=== PATIENT | female | born 2005 | race Caucasian/White ===

== ENCOUNTER 2024-06-24 13:18 | Emergency (ER) | payer MEDICAID ==
[~2024-06-24] VITALS: Ht 157.5 cm; Wt 41.2 kg
[2024-06-24 13:48] VITALS: TEMP 98.5
[2024-06-24 13:56] VITALS: BP 104/77; PULSE 107; RESP 16; O2SAT 98
--- NOTE | 2024-06-24 14:23 | DVH ---
CLINICAL INDICATION: Pain TECHNIQUE: 3 radiographic views of the right shoulder were obtained. Comparison: None FINDINGS/IMPRESSION: There is no evidence of acute fracture or dislocation. The visualized joint space is well maintained. The alignment is anatomical. There is no radiopaque foreign body.
--- NOTE | 2024-06-24 14:27 | DVH ---
EXAM: XY R ELBOW 3 VIEW XRAY HISTORY: possible fracture/dislocation COMPARISON: None TECHNIQUE: Three views of the right elbow were performed. FINDINGS: No acute fracture or effusion are identified about the right elbow. No significant degenerative ponce ges. IMPRESSION: No acute fracture of the right elbow.
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
== END 2024-06-24 14:47 | disposition home or self-care (01) ==
LOC: ER 13:18
DX: M25.511 Pain in right shoulder (principal); M25.521 Pain in right elbow
CPT/HCPCS: 73030; 73080

== ENCOUNTER 2024-09-04 12:53 | Emergency (ER) | payer MEDICAID ==
[~2024-09-04] VITALS: Ht 160 cm; Wt 46.0 kg
[2024-09-04] MEDS: cefTRIAXone SOD 1,000 MG VL IM ONE (13:43)
[2024-09-04] MEDS: ACETAMINOPHEN 325 MG TAB PO ONE (13:43)
--- NOTE | 2024-09-04 13:49 | ED.PDOC ---
Eye-HPI HPI Comments A 19 YEAR OLD FEMALE PRESENTS TO THE ED WITH COMPLAINT OF SORE THROAT. PATIENT STATES SHE HAS BEEN EXPERIENCING A SORE THROAT, BODY ACHES, AND AN OCCASIONAL FEVER THAT STARTED YESTERDAY. PATIENT DENIES FEVER, CHILLS, SHORTNESS OF BREATH, CHEST PAIN, ABDOMINAL PAIN, NAUSEA, VOMITING, HEADACHE, OR OTHER COMPLAINTS. NO OTHER SYMPTOMS OR MODIFYING FACTORS AT THIS TIME. PATIENT IS ALERT, ORIENTED X 4, AND HAS STEADY GAIT. Chief Complaint: Flu like Time Seen by MD: 13:14 Primary Care Provider: NONE Reviewed Notes: Nurses Notes, Medications, Allergies Allergies: Coded Allergies: NO KNOWN ALLERGIES (Unverified , 01/17/16) Home Meds Active Scripts Ibuprofen (Ibuprofen) 600 Mg Tab, 1 TAB PO TID, #30 TAB Prov:RASHAWN CONCEPCION 09/04/24 Azithromycin (ZITHROMAX TABLET) 250 Mg Tb, 250 MG PO DAILY, #6 TAB Prov:RASHAWN CONCEPCION 09/04/24 Information Source: Patient Mode of Arrival: Ambulatory Timing: Days Duration: Since onset, Days Prehospital treatment: None Quality: Pain, Red Lids: Normal Conjunctiva: Normal Cornea: Normal Pupils: Normal EOM: Normal Fundus: Normal Slit lamp exam: Normal Anterior chamber: Normal Mouth Location: Pharynx Mouth: Normal ENT Ear Exam: Normal, Normal, Normal Nose: Normal Sinuses: Normal Oropharynx: Tonsillar hypertrophy, Red Onset: Spontaneous Throat Exposed to: None History of: None Last Tetanus: UTD Modifying factors: Nothing Associated signs and symptoms: Sore Throat Past Medical History PAST MEDICAL HISTORY: Denies Surgical History: Denies all surgeries NETWORK TECHNICIAN History: No Pertinent NETWORK TECHNICIAN History Family History Family History: Reviewed,noncontributory to illness Social History Smoker: Non-Smoker Alcohol: Denies ETOH Use Drugs: Denies Drug Use Lives In: Home Constitutional: reports: fever; denies: chills, diaphoresis, fatigue, malaise, sweats, weakness, others EENTM: reports: throat pain, throat swelling; denies: blurred vision, double vision, ear bleeding, ear discharge, ear drainage, ear pain, ear ringing, eye pain, eye redness, hearing loss, mouth pain, mouth swelling, nasal discharge, nose bleeding, nose congestion, nose pain, photophobia, tearing, voice changes, others Respiratory: denies: cough, hemoptysis, orthopnea, SOB at rest, shortness of breath, SOB with excertion, stridor, wheezing, others Cardiovascular: denies: chest pain, dizzy spells, diaphoresis, Dyspnea on e xertion, edema, irregular heart beat, left arm pain, lightheadedness, palpitations, PND, syncope, others Gastrointestinal: denies: abdomen distended, abdominal pain, blood streaked bowels, constipated, diarrhea, dysphagia, difficulty swallowing, hematemesis, melena, nausea, poor appetite, poor fluid intake, rectal bleeding, rectal pain, vomiting, others Genitourinary: denies: abnormal vagina bleeding, burning, dyspareunia, dysuria, flank pain, frequency, hematuria, incontinence, pain, , vagina discharge, urgency, others Neurological: denies: dizziness, fainting, headache, left sided numbness, left sided weakness, numbness, paresthesia, pre-existing deficit, right sided numbness, right sided weakness, seizure, speech problems, tingling, tremors, weakness, others Musculoskeletal: reports: muscle pain; denies: back pain, gout, joint pain, joint swelling, muscle stiffness, neck pain, others Integumetry: denies: bruises, change in color, change in hair/nails, dryness, laceration, lesions, lumps, rash, wounds, others Allergic/Immunocompromised: denies: Difficulty Healing, Frequent Infections, Hives, Itching, others Hematologic/Lymphatic: denies: anemia, blood clots, easy bleeding, easy bruising, swollen glands, others Endocrine: denies: excessive hunger, excessive sweating, excessive thirst, excessive urination, flushing, intolerance to cold, intolerance to heat, unexplained weight gain, unexplained weight loss, others Psychiatric: denies: anxiety, bipolar disorder, depression, hopeless, panic disorder, schizophrenia, sleepless, suicidal, others All Other Systems: Reviewed and Negative Physical Exam General Appearance: No Apparent Distress, Normal HEENT: PERRL/EOMI, Pharyngeal Erythema (TONSILLAR SWELLING, NO EXUDATES), TMs Normal Neck: Full Range of Motion, Non-Tender, Normal, Normal Inspection Respiratory: Chest Non-Tender, Lungs Clear, No Accessory Muscle Use, No Respiratory Distress, Normal Breath Sounds Cardiovascular: No Edema, No JVD, No Murmur, No Gallop, Normal Peripheral Pulses, Regular Rate/Rhythm Breast Exam: Deferred Gastrointestinal: No Organomegaly, Non Tender, No Pulsatile Mass, Normal Bowel Sounds, Soft Genitalia: Deferred Pelvic: Deferred Rectal: Deferred Extremities: No calf tenderness, Normal capillary refill, Normal inspection, Normal range of motion, Non-tender, No pedal edema Musculoskeletal : Apperance: Normal Neurologic: Alert, sas bi developer II-XII nml as Tested, No Motor Deficits, Normal Affect, Normal Mood, No Sensory Deficits Cerebellar Function: Normal Reflexes: Normal Skin: Dry, Normal Color, Warm Peripheral Pulses: 2+ carotid (R), 2+ carotid (L) Lymphatic: No Adenopathy Was a procedure done? Was a procedure done?: No EENT DIFF Eye: N/A Ear: Otitis Media, Pharyngitis, Sinusitis Nose: N/A Mouth: N/A Sore Throat: Pharyngitis, Streptococcal, Viral Pharyngitis, URI X-Ray, Labs, Meds, VS Vital Signs Date Time Temp Pulse Resp B/P (MAP) Pulse Ox O2 Delivery O2 Flow Rate FiO2 09/04/24 13:23 98.5 97 16 115/79 (91) 98 98.5 09/04/24 13:23 97 16 98 Room Air 09/04/24 13:03 98.5 97 16 115/79 (91) 98 98.5 Current Medications Medications (Trade) Dose Ordered Sig/Collette Route Start Time Stop Time Status Last Admin Ceftriaxone Sodium (Rocephin) 1,000 mg ONCE ONCE IM 09/04/24 13:45 09/04/24 13:46 DC 09/04/24 13:43 Acetaminophen (Tylenol Tablet) 650 mg ONCE ONCE PO 09/04/24 13:45 09/04/24 13:46 DC 09/04/24 13:43 X-Ray, Labs, Meds, VS Comment EXTERNAL MEDICAL RECORDS REVIEWED: [NONE] INDEPENDENT HISTORIANS: [NONE] SOCIAL DETERMINANTS OF HEALTH: [NONE] LABS ORDERED: NONE REVIEWED AND INTERPRETED RESULTS: NONE IMAGING ORDERED: NONE TREATMENTS ORDERED: ROCEPHIN 1 G IM PROCEDURES PERFORMED: NONE CRITICAL CARE TIME: NONE I HAVE DISCUSSED THE PATIENT WITH THE ATTENDING PHYSICIAN DR. DILLARD AND HE AG GERMÁN WITH THE PATIENT'S PLAN OF CARE AND DISPOSITION. BASED ON HISTORY OF PRESENT ILLNESS, AND PHYSICAL EXAM, PATIENT WILL BE D ISCHARGED HOME. DISCUSSED PLAN FOR DISCHARGE HOME WITH RX [AZITHROMYCIN AND IBUPROFEN 600 MG]. MEDICATION WARNINGS GIVEN. SHARED DECISION MAKING: PATIENT INSTRUCTED TO FOLLOW UP WITH PRIMARY CARE PROVIDER IN 1-2 DAYS FOR RE-EVALUATION OF SYMPTOMS. PATIENT VERBALIZES UNDERSTANDING TO RETURN TO ED FOR NEW OR WORSENING SYMPTOMS OR IF FOLLOW UP WITH PCP CANNOT BE OBTAINED. PATIENT FEELS COMFORTABLE GOING HOME AT THIS TIME. ALL QUESTIONS ADDRESSED AT TIME OF DISCHARGE. Time of 1ST Reevaluation: 14:06 Reevaluation 1ST: Improved Patient Education/Counseling: Diagnosis, Treatment, Need For Follow Up Family Education/Counseling: Diagnosis, Treatment, Need For Follow Up Medical Screening: No EMC Exist At This Time Departure 1 Departure Time of Disposition: 14:06 Impression: Primary Impression: Acute tonsillitis Qualified Codes: J03.90 - Acute tonsillitis, unspecified Disposition: 01 HOME / SELF CARE / HOMELESS Condition: Stable Additional Instructions: FOLLOW-UP WITH PCP IN 1 TO 2 DAYS. TAKE MEDICATIONS PRESCRIBED. RETURN TO ED FOR ANY NEW OR WORSENING SYMPTOMS. e-Prescriptions Ibuprofen (Ibuprofen) 600 Mg Tab 1 TAB PO TID, #30 TAB Prov: RASHAWN CONCEPCION 09/04/24 Azithromycin (ZITHROMAX TABLET) 250 Mg Tb 250 MG PO DAILY, #6 TAB Prov: RASHAWN CONCEPCION 09/04/24 Discharged With: Self Critical Care Note Critical Care Time?: No Stability Stability form required: No I personally scribed for RASHAWN CONCEPCION ([email or web address]) on 09/04/24 at 13:49. Electronically submitted by Nick Skelton ([email or web address]). RASHAWN CONCEPCION September 04, 2024 13:49
[2024-09-04] MEDS ORDERED: AZIT-185 PO (14:02)
[2024-09-04] MEDS ORDERED: IBUP-1454 PO (14:02)
[2024-09-04 14:05] VITALS: BP 105/71; PULSE 97; RESP 18; O2SAT 97
[2024-09-04 14:06] VITALS: TEMP 98.3
== END 2024-09-04 14:08 | disposition home or self-care (01) ==
LOC: ER 12:59
DX: J03.90 Acute tonsillitis, unspecified (principal); M79.18 Myalgia, other site
CPT/HCPCS: 96372; 99283; J0696

== ENCOUNTER 2024-12-15 14:36 | Emergency (ER) | payer MEDICAID ==
[~2024-12-15] VITALS: Ht 157.5 cm; Wt 43.1 kg
[~2024-12-15 14:36] MED LIST: AZIT-185 PO; IBUP-1454 PO
--- NOTE | 2024-12-15 15:28 | ED.PDOC ---
Eye-HPI HPI Comments This is a 19 year-old female, with a PMHX of Tonsillitis, who presents to the ED with a chief complaint of throat pain with swelling as of X3 days ago. Patient reports a difficulty eating and drinking due to the pain. Patient additionally states she took a Tylenol last night, with some alleviation noted. Patient has no further complaints at this time and otherwise denies further associated symptoms of N/V/D, fever, chills, dizziness, or general weakness. Chief Complaint: Sore Throat Time Seen by MD: 15:21 Primary Care Provider: NONE Reviewed Notes: Nurses Notes, Medications, Allergies Allergies: Coded Allergies: NO KNOWN ALLERGIES (Unverified , 01/17/16) Home Meds Active Scripts Ibuprofen Micronized (Ibuprofen) 600 Mg Tab, 600 MG PO Q8HP PRN for 10 Days, #30 TAB 0 Refills Prov:GIRISH MARADIAGA NP 12/15/24 Penicillin V Potassium (Veetids) 500 Mg Tab, 1 TAB PO BID for 10 Days, #20 TAB 0 Refills Prov:GIRISH MARADIAGA NP 12/15/24 Ibuprofen (Ibuprofen) 600 Mg Tab, 1 TAB PO TID, #30 TAB Prov:RASHAWN CONCEPCION 09/04/24 Azithromycin (ZITHROMAX TABLET) 250 Mg Tb, 250 MG PO DAILY, #6 TAB Prov:RASHAWN CONCEPCION 09/04/24 Information Source: Patient Mode of Arrival: Ambulatory Timing: Hours Duration: Since onset Quality: Pain Onset: Spontaneous Associated signs and symptoms: Sore Throat Past Medical History PAST MEDICAL HISTORY: Denies Surgical History: Denies all surgeries MEDICAL OFFICE PROFESSIONAL INSTRUCTOR History: No Pertinent MEDICAL OFFICE PROFESSIONAL INSTRUCTOR History Family History Family History: Reviewed,noncontributory to illness Social History Smoker: Non-Smoker Alcohol: Denies ETOH Use Drugs: Denies Drug Use Lives In: Home Constitutional: denies: chills, diaphoresis, fatigue, fever, malaise, sweats, weakness, others EENTM: reports: throat pain, throat swelling; denies: blurred vision, double vision, ear bleeding, ear discharge, ear drainage, ear pain, ear ringing, eye pain, eye redness, hearing loss, mouth pain, mouth swelling, nasal discharge, nose bleeding, nose congestion, nose pain, photophobia, tearing, voice changes, others Respiratory: denies: cough, hemoptysis, orthopnea, SOB at rest, shortness of breath, SOB with excertion, stridor, wheezing, others Cardiovascular: denies: chest pain, dizzy spells, diaphoresis, Dyspnea on exertion, edema, irregular heart beat, left arm pain, lightheadedness, palpitations, PND, syncope, others Gastrointestinal: denies: abdomen distended, abdominal pain, blood streaked bowels, constipated, diarrhea, dysphagia, difficulty swallowing, hematemesis, melena, nausea, poor appetite, poor fluid intake, rectal bleeding, rectal pain, vomiting, others Genitourinary: denies: abnormal vagina bleeding, burning, dyspareunia, dysuria, flank pain, frequency, hematuria, incontinence, pain, , vagina discharge, urgency, others Neurological: denies: dizziness, fainting, headache, left sided numbness, left sided weakness, numbness, paresthesia, pre-existing deficit, right sided numbn ess, right sided weakness, seizure, speech problems, tingling, tremors, weakness, others Musculoskeletal: denies: back pain, gout, joint pain, joint swelling, muscle pain, muscle stiffness, neck pain, others Integumetry: denies: bruises, change in color, change in hair/nails, dryness, laceration, lesions, lumps, rash, wounds, others Allergic/Immunocompromised: denies: Difficulty Healing, Frequent Infections, Hives, Itching, others Hematologic/Lymphatic: denies: anemia, blood clots, easy bleeding, easy bruising, swollen glands, others Endocrine: denies: excessive hunger, excessive sweating, excessive thirst, excessive urination, flushing, intolerance to cold, intolerance to heat, unexplained weight gain, unexplained weight loss, others Psychiatric: denies: anxiety, bipolar disorder, depression, hopeless, panic disorder, schizophrenia, sleepless, suicidal, others All Other Systems: Reviewed and Negative Physical Exam General Appearance: Mild Distress, Normal HEENT: Other (uvula midline, no tonsillar exudate) Neck: Full Range of Motion, Non-Tender, Normal, Normal Inspection Respiratory: Chest Non-Tender, Lungs Clear, No Accessory Muscle Use, No Respiratory Distress, Normal Breath Sounds Cardiovascular: No Edema, No JVD, No Murmur, No Gallop, Normal Peripheral Pulses, Regular Rate/Rhythm Breast Exam: Deferred Gastrointestinal: No Organomegaly, Non Tender, No Pulsatile Mass, Normal Bowel Sounds, Soft Genitalia: Deferred Pelvic: Deferred Rectal: Deferred Extremities: No calf tenderness, Normal capillary refill, Normal inspection, Normal range of motion, Non-tender, No pedal edema Musculoskeletal : Apperance: Normal Neurologic: Alert, heel caser II-XII nml as Tested, No Motor Deficits, Normal Affect, Normal Mood, No Sensory Deficits Cerebellar Function: Normal Reflexes: Normal Skin: Dry, Normal Color, Warm Lymphatic: No Adenopathy Was a procedure done? Was a procedure done?: No EENT DIFF Sore Throat: Epiglottitis, Pharyngitis, Streptococcal, Viral Pharyngitis X-Ray, Labs, Meds, VS Vital Signs Date Time Temp Pulse Resp B/P (MAP) Pulse Ox O2 Delivery O2 Flow Rate FiO2 12/15/24 14:37 98.7 96 19 106/61 95 98.7 Lab Test 12/15/24 15:31 Range/Units SARS-CoV-2 Antigen (Rapid) Negative NEGATIVE Group A Streptococcus Rapid Negative Current Medications Medications (Trade) Dose Ordered Sig/Collette Route Start Time Stop Time Status Last Admin Ketorolac Tromethamine (Toradol Injection) 30 mg ONCE ONCE IM 12/15/24 15:30 12/15/24 15:31 DC 12/15/24 15:42 Dexamethasone Sodium Phosphate (Decadron Injection) 10 mg ONCE ONCE IM 12/15/24 15:30 12/15/24 15:31 DC 12/15/24 15:44 X-Ray, Labs, Meds, VS Comment This is a 19 year-old female, with a PMHX of Tonsillitis, who presents to the ED with a chief complaint of throat pain with swelling as of X3 days ago. Patient arrives alert and oriented, ABC's intact, afebrile, vital signs stable, saturating well in room air Peripheral IV insertion+ labs were ordered. COVID Test and Strep Screening were ordered. Labs in the ED showed (pertinent+ and then pertinent-) Patient was given: 30MG Toradol Injection and 10MG Decadron IM. Tolerated medications with no adverse reaction. Additional MDM Review of External, Non-ED records: External records reviewed. Discussion with independent historian (EMS, family) history obtained from the patient/parents (if applicable) at bedside Chronic conditions affecting care: None Social determinants of health affecting care: None Consideration of admission (observation or admission): I considered escalation of care to admission for this patient, however given the reassuring workup, the patient is safe for outpatient management. Discussion with the Radiology: No Tests considered but not performed: Prescription medication considered but not given: 12 lead EKG interpretation: Images Reviewed?: Images reviewed and evaluated by me Time of 1ST Reevaluation: 15:36 Reevaluation 1ST: Unchanged Patient Education/Counseling: Diagnosis, Treatment, Need For Follow Up Family Education/Counseling: No Family Present Medical Screening: No EMC Exist At This Time SEPSIS Sepsis Screen Date sepsis recognized/suspect: Dec 15, 2024 Time Sepsis recognized/suspect: 1436 Recent Procedure: No On Antibiotic Therapy: No Respiratory Rate >20: No Heart Rate >90: Yes Temp<36 C (96.8 F) or >38.3 C: No SBP <90 or MAP <65 mmHG: No New Acute Mental Status Change: No Is the patient on CPAP, BIPAP,: No Vital Signs Date Time Temp Pulse Resp B/P (MAP) Pulse Ox O2 Delivery O2 Flow Rate FiO2 12/15/24 14:37 98.7 96 19 106/61 95 98.7 Medications Medications Dose Ordered Sig/Collette Route Start Time Stop Time Status Last Admin Dose Admin Dexamethasone Sodium Phosphate 10 mg ONCE ONCE IM 12/15/24 15:30 12/15/24 15:31 DC 12/15/24 15:44 Ketorolac Tromethamine 30 mg ONCE ONCE IM 12/15/24 15:30 12/15/24 15:31 DC 12/15/24 15:42 Departure 1 Departure Time of Disposition: 17:02 Impression: Primary Impression: Pharyngitis Qualified Codes: J02.9 - Acute pharyngitis, unspecified Additional Impression: Strep throat Disposition: HOME / SELF CARE / HOMELESS Condition: Stable Additional Instructions: Follow up with PCP in 1-2 days. Take medications as prescribed. Return to the ED for any new or worsening symptoms. e-Prescriptions Ibuprofen Micronized (Ibuprofen) 600 Mg Tab 600 MG PO Q8HP PRN for 10 Days, #30 TAB 0 Refills Prov: GIRISH MARADIAGA JUNIOR ELECTRICAL ENGINEER 12/15/24 Penicillin V Potassium (Veetids) 500 Mg Tab 1 TAB PO BID for 10 Days, #20 TAB 0 Refills Prov: GIRISH MARADIAGA NP 12/15/24 Discharged With: Self Critical Care Note Critical Care Time?: No Stability Stability form required: No Heart Score Heart Score: Heart Score Response (Comments) Value History N/A 0 EKG N/A 0 Age N/A 0 Risk Factors N/A 0 Troponin N/A 0 Total 0 I personally scribed for GIRISH MARADIAGA JUNIOR ELECTRICAL ENGINEER ([email or web address]) on 12/15/24 at 15:28. Electronically submitted by Emily Stack ([email or web address]). I personally scribed for GIRISH MARADIAGA JUNIOR ELECTRICAL ENGINEER ([email or web address]) on 12/15/24 at 15:28. Electronically submitted by Emily Stack ([email or web address]). I personally scribed for GIRISH MARADIAGA JUNIOR ELECTRICAL ENGINEER ([email or web address]) on 12/15/24 at 15:30. Electronically submitted by Emily Stack ([email or web address]). I personally scribed for GIRISH MARADIAGA JUNIOR ELECTRICAL ENGINEER ([email or web address]) on 12/15/24 at 17:07. Electronically submitted by Emily Stack ([email or web address]). GIRISH MARADIAGA NP Dec 15, 2024 15:28
[2024-12-15] MEDS: KETOROLAC TROMETH 30 MG/ML 1ML VIAL IM ONE (15:42)
[2024-12-15 16:32] LABS: Rapid Strep A Screen-Throat Negative
[2024-12-15 16:56] LABS: COVID19 ANTIGEN SOFIA FIA NEGATIVE (NEGATIVE)
[2024-12-15] MEDS ORDERED: PENI500T2 PO (17:03)
[2024-12-15] MEDS ORDERED: IBUP1TAB5 PO (17:03)
[2024-12-15 17:20] VITALS: BP 108/59; PULSE 62; RESP 16; TEMP 98.7; O2SAT 98
== END 2024-12-15 17:22 | disposition home or self-care (01) ==
LOC: ER 14:36
DX: J02.0 Streptococcal pharyngitis (principal); Z79.899 Other long term (current) drug therapy; Z20.822 Contact with and (suspected) exposure to COVID-19
CPT/HCPCS: 36415; 87070; 87426; 87880; 96372; 99284; J1100; J1885